=== PATIENT | male | born 1960 | race Caucasian/White ===

== ENCOUNTER 2023-03-28 12:20 | Emergency (ER) | payer MEDICARE, SELFPAY ==
--- NOTE | ~2023-03-28 | XR_ITS ---
XR foot RT min 3V DATE: 03/28/2023 12:45 INDICATION: Inversion injury, lateral and proximal foot pain TECHNIQUE: 4 views COMPARISON: None FINDINGS: Moderate osteoarthritic change and spurring at the first metatarsophalangeal joint. There i s degenerative spurring at the tarsal joints. Prominent posterior calcaneal enthesopathy. No fracture or dislocation, periosteal reaction or bone destruction is detected. IMPRESSION: No fracture or dislocation Posterior calcaneal enthesopathy Osteoarthritic changes Reviewed, dictated and finalized at location A.
[2023-03-28 12:33] VITALS: BP 143/87; PULSE 95; RESP 14; TEMP 36.8; O2SAT 98
--- NOTE | 2023-03-28 12:54 | ED.LOWEXIN ---
HPI - Extremity Injury (Lower) General Chief Complaint: Extremity Injury, Lower Stated Complaint: Right Leg Injury Time Seen by Provider: 03/28/23 12:55 Source: patient Mode of arrival: ambulatory Limitations: no limitations History of Present Illness HPI Narrative: 62 presents for complaint of right foot and ankle pain after injury last night. He states he slipped while getting into his truck and rolled the ankle, inverting the foot. Endorses this morning he had more bruising and swelling. Reports decreased range of motion at the ankle due to pain. He took ibuprofen today. Denies numbness, tingling, weakness. Related Data Home Medications Medication Instructions Recorded Confirmed atorvastatin 80 mg tablet 80 mg PO DAILY 03/28/23 03/28/23 metoprolol succinate 50 mg 50 mg PO DAILY 03/28/23 03/28/23 tablet,extended release 24 hr Review of Systems Review of Systems: CONSTITUTIONAL: Denies body aches, fever, chills EYES: Denies visual changes ENT: Denies rhinorrhea, congestion CARDIOVASCULAR: Denies chest pain, palpitations, or edema. RESPIRATORY: Denies cough or dyspnea. GASTROINTESTINAL: Denies abdominal pain, nausea, vomiting, or diarrhea. SKIN: Denies rash, itching, or wounds. MUSCULOSKELETAL: Reports right ankle pain Denies back pain, or myalgia. NEUROLOGIC: Denies headache, numbness, tingling, or weakness. All systems reviewed & are unremarkable except as noted in HPI and below PMFSH Past Medical History Medical History (Updated 03/28/23 @ 13:06 by Staci Mcgarry APRN) HTN (hypertension) Comments At time of signature, I have reviewed and agree with nursing past medical, surgical, social and family history unless otherwise noted. Please see nursing chart for further information. There is no relevant family history pertinent to the presenting complaint Exam Narrative: GENERAL: Well-appearing, and in no acute distress. HEAD: Normocephalic, atraumatic. CHEST: Speaks in full sentences. No respiratory distress. HEART: Regular rate and rhythm. Normal and equal peripheral pulses. EXTREMITIES: Right dorsolateral foot with moderate swelling and bruising. Tender to dorsolateral aspect of midfoot. limited range of motion at ankle endorses pain with movement. Right foot has normal strength and sensation, Nontender malleolus. No open wounds, or obvious deformity; alignment normal, pulse palpable and equal bilaterally, skin warm, dry, pink. Capillary refill less than 3 seconds. SKIN: Warm, dry, no rash. NEURO: Alert and oriented x3. PSYCH: Normal mood and affect Course Course Emergency Course: Patient is aware of diagnosis, understands and agrees to treatment plan. Anticipatory guidance given. Patient agrees to follow-up as directed and is aware of reasons to seek care at the emergency department. Portions of this record may have been created with voice recognition software Level of Care: Express Care Visit Vital Signs Vital signs: Vital Signs Temperature 98.2 F 03/28/23 12:33 Pulse Rate 95 03/28/23 12:33 Respiratory Rate 14 03/28/23 12:33 Blood Pressure 143/87 H 03/28/23 12:33 Pulse Oximetry 98 03/28/23 12:33 Oxygen Delivery Room Air 03/28/23 12:33 Temperature 98.2 F 03/28/23 12:33 Pulse Rate 95 03/28/23 12:33 Respiratory Rate 14 03/28/23 12:33 Blood Pressure 143/87 H 03/28/23 12:33 Pulse Oximetry 98 03/28/23 12:33 Oxygen Delivery Room Air 03/28/23 12:33 Reviewed Procedures Orthopedic Splinting/Casting right ankle: Lower Extremity Immobilizer: Deonte wrap Other Orthopedic Equipment: crutches MDM - Extremity Injury (Lower) MDM Narrative Medical decision making narrative: results of x-ray reviewed with patient. Deonte wrap applied and crutch training provided. Discussed physical exam findings. Advised supportive measures and signs/symptoms to go to the ER. Pt is appropriate for outpt treatment and f/u. Differential Diagnosis
== END 2023-03-28 13:07 | disposition home or self-care (01) ==
PROVIDERS: Emergency Provider Nurse Practitioner Family; PCP Family Medicine
DX: S93.401A Sprain of unspecified ligament of right ankle, initial encounter (principal); S96.911A Strain of unspecified muscle and tendon at ankle and foot level, right foot, initial encounter; X50.9XXA Other and unspecified overexertion or strenuous movements or postures, initial encounter; I10 Essential (primary) hypertension
CPT/HCPCS: 73630; 99213; G0463